=== PATIENT | female | born 1995 | race Caucasian/White ===

== ENCOUNTER 2018-11-20 19:50 | Emergency (ER) | payer OTHER ==
[2018-11-20 20:19] LABS: Bilirubin Negative (Negative); Blood, Urine Negative (Negative); Clarity CLEAR (Clear); Glucose, Urine (Dipstick) Negative (Negative); Leukocyte Negative (Negative); Nitrite Negative (Negative); Protein, Urine (Dipstick) Negative (Neg-Trace); Specific Gravity, Urine 1.007 (1.002-1.036); pH, Urine 6.5 (5.0-9.0)
[2018-11-20 20:31] LABS: #Eosinphils 0.1 thou/uL (0.0-0.7); #Lymphocytes 1.4 thou/uL (1.20-3.40); #Monocytes 0.7 thou/uL (0.11-0.59); #Neutrophils 7.1 thou/uL (1.40-6.50); %Basophils 0.4 % (0.0-1.0); %Eosinophils 1.1 % (0.0-10.0); %Lymphocytes 14.7 % (21.0-51.0); %Neutrophils 76.8 % (42.0-75.0); Mean Corpuscular HGB CONC 34.2 g/dL (32.0-36.0); Mean Corpuscular Hemoglobin 30.2 pg (27.0-31.0); Mean Corpuscular Volume 88.4 fL (78.0-98.0); Mean Platelet Volume 9.3 fL (7.4-10.4); Platelet Count 218 thou/uL (130-400); White Blood Cell (WBC) Count 9.2 thou/uL (4.8-10.8)
[2018-11-20 20:47] LABS: ALT (SGPT) 14 U/L (8-55); AST (SGOT) 15 U/L (5-34); Albumin 3.6 g/dL (3.5-5.0); Alkaline Phosphatase 81 U/L (40-150); Anion Gap 13 mmol/L (10-20); BUN (Urea Nitrogen) 6 mg/dL (7.0-18.7); Bilirubin, Total 0.2 mg/dL (0.2-1.2); Calc. Creatinine Clearance 0 mL/min (70-130); Calcium 9.7 mg/dL (7.8-10.44); Carbon Dioxide 22 mmol/L (22-29); Chloride 107 mmol/L (98-107); Estimated GFR-MDRD Greater than 90; Globulin 3.9 g/dL (2.4-3.5); Glucose 85 mg/dL (70-105); Potassium 3.9 mmol/L (3.5-5.1); Protein, Total 7.5 g/dL (6.0-8.3); Sodium 138 mmol/L (136-145)
[2018-11-20] MEDS ORDERED: Metoclopramide HCl 10 MG/2 ML VIAL ONE (21:21)
[2018-11-20] MEDS ORDERED: diphenhydrAMINE 50 MG/ML VIAL IVP SCH (21:30)
== END 2018-11-20 23:35 | disposition home or self-care (01) ==
LOC: ERS 19:50
DX: O21.9 Vomiting of pregnancy, unspecified (principal); O99.89 Other specified diseases and conditions complicating pregnancy, childbirth and the puerperium; R11.10 Vomiting, unspecified; Z3A.21 21 weeks gestation of pregnancy
CPT/HCPCS: 36415; 80053; 81003; 84702; 85025; 87086; 87804; 96365; 96375; J1200; J2765

== ENCOUNTER 2019-02-08 01:47 | Day surgery (SDC) | payer OTHER ==
[2019-02-08 03:38] VITALS: BMI 38.9
--- NOTE | 2019-02-08 03:58 | PDOC.LDHP ---
Labor and Delivery H&P Chief complaint: other (Epigastric pain) HPI: 23 yo @ 33.1 weeks comes in with complaints of epigastric pain earlier in the evening. Pt reports not having pain since she has been here in triage. Pt reports getting into verbal alteracation at the bar earlier in the evening. Stated after this argument she started feeling sharp pain in the upper abdomen. Reported not feeling baby move for a little bit as well. Denies any n/v/d/c. Denies any fever or chills. Reports +fm while here, Denies ctx, vaginal bleeding , discharge or irritation. Denies any urinary sx's. Denies burning when peeing. Pt denies any hx of gallbladder issues. Current gestational age (weeks): 33 (1 day) Grav: 1 Para: 0 Current complications: none Abnormal US findings: No Past Medical History: Anxiety, Seizures Current medications: pre-josé antonio vitamins Previous surgical history: none Allergies/Adverse Reactions: Allergies Allergy/AdvReac Type Severity Reaction Status Date / Time No Known Drug Allergies Allergy Verified 02/08/19 03:31 Social history: none - Physical Exam Vital signs reviewed and normal: yes General: NAD, resting Heart: RRR Lungs: nonlabored breathing Abdomen: NTTP Extremeties: no edema FHT: category 1, variability present Bantry contractions every: None noted - OB Labs Blood type: unknown RH: unknown Antibody Screen: unknown HIV: unknown RPR: unknown HEPSAg: unknown 1 hour GCT: unknown - Plan Plan: observation in L&D -: 23 yo @ 33.1 weeks comes in with Epigastric Pain -No tenderness noted on physical exam. No sign of bruising or redness or massess. -Pain resolved while here. Advised that pain likely round ligament vs GERD. Advised to try OTC GERD medication or milk or tylenol if pain returns. -NST reactive. Multiple accels noted Addendum - Attending - Attending Attestation Date/Time: 02/08/19 0748 I personally evaluated the patient and discussed the management with Dr. Dawn I agree with the History, Examination, Assessment and Plan documented above with any addition or exceptions noted below.
== END 2019-02-08 04:10 | disposition home or self-care (01) ==
LOC: L&D/OP 01:47
PROVIDERS: ATTEND Family Medicine
DX: O99.89 Other specified diseases and conditions complicating pregnancy, childbirth and the puerperium (principal); R10.13 Epigastric pain; O99.343 Other mental disorders complicating pregnancy, third trimester; F41.9 Anxiety disorder, unspecified; Z3A.33 33 weeks gestation of pregnancy; Z79.899 Other long term (current) drug therapy
CPT/HCPCS: 99282

== ENCOUNTER 2019-02-18 11:34 | Emergency (ER) | payer OTHER | END 2019-02-18 13:42 | disposition home or self-care (01) | LOC: ERS 11:34 | DX: J06.9 Acute upper respiratory infection, unspecified (principal); H10.9 Unspecified conjunctivitis | CPT/HCPCS: 99283 ==

== ENCOUNTER 2019-03-21 05:10 | Inpatient (IN) | payer OTHER ==
[2019-03-29] MEDS ORDERED: Methylergonovine 0.2 MG/ML VIAL IM PRN (21:44)
[2019-03-29] MEDS ORDERED: Diphenoxylate HCl/Atropine Tablet PO PRN (21:44)
[2019-03-29] MEDS ORDERED: Penicillin G 2.5 MILL.units 2.5 MILL.UNITS in Premix Bag 1 BAG IVPB SCH (21:44)
[2019-03-29] MEDS ORDERED: NS w/ Oxytocin 10 units 500 ML IV SCH ×2 (21:44)
[2019-03-29] MEDS ORDERED: HYDROcodone/Acetaminophen 5/325 mg Tablet PO PRN (21:44)
[2019-03-29] MEDS ORDERED: Lidocaine 1% (PF) 30 ML VIAL SC PRN (21:44)
[2019-03-29] MEDS ORDERED: Carboprost 250 MCG/ML AMP IM PRN (21:44)
[2019-03-29] MEDS ORDERED: Ondansetron PF 4 MG/2 ML Vial IVP PRN (21:44)
[2019-03-29] MEDS ORDERED: Ibuprofen 800 MG TAB PO PRN (21:44)
[2019-03-29] MEDS ORDERED: Misoprostol 200 MCG TAB PR PRN (21:44)
[2019-03-29] MEDS ORDERED: Penicillin G Potassium 5 MILL.UNITS in Sodium Chloride 0.9% 100 ML IVPB SCH (21:44)
[2019-03-29] MEDS ORDERED: NS / Oxytocin 40 units/1000ml 1,000 ML IV PRN (21:44)
[2019-03-29] MEDS ORDERED: Promethazine HCl 25 MG/ML VIAL IM PRN (21:44)
[2019-03-29 21:56] VITALS: BMI 40.5
[2019-03-29] MEDS: Lactated Ringer's 1,000 ML IV SCH (22:03)
[2019-03-29 22:12] LABS: Hemoglobin 13.5 g/dL (12.0-16.0); Mean Corpuscular HGB CONC 33.2 g/dL (32.0-36.0); Mean Corpuscular Hemoglobin 30.1 pg (27.0-31.0); Mean Corpuscular Volume 90.5 fL (78.0-98.0); Mean Platelet Volume 9.7 fL (7.4-10.4); Platelet Count 191 thou/uL (130-400); RBC Distribution Width 11.5 % (11.5-14.5); Red Blood Cell (RBC) Count 4.49 mill/uL (4.20-5.40); White Blood Cell (WBC) Count 13.6 thou/uL (4.8-10.8)
[2019-03-29 22:51] LABS: Syphilis Antibody Nonreactive (Nonreactive); Syphilis Antibody Index 0.04 S/CO (<1.00 Non-Reactive)
[2019-03-29 23:02] LABS: Amnisure Internal Control QC ACCEPTABLE (ACCEPTABLE); Amnisure Test No Membranes Rupture (No Rupture)
[2019-03-29] MEDS: Misoprostol 100 MCG TAB PO SCH (23:38)
[2019-03-29 23:47] LABS: Hep B Surf Ag Non-Reactive S/CO (NonReactive)
[2019-03-30] MEDS: Lactated Ringer's 1,000 ML IV SCH ×3 (02:11→14:49)
[2019-03-30] MEDS: Butorphanol Tartrate 1 MG/ML VIAL SLOW IVP PRN ×2 (03:54→11:35)
[2019-03-30] MEDS: Misoprostol 100 MCG TAB PO SCH ×2 (05:15→19:52)
[2019-03-30] MEDS ORDERED: ePHEDrine/0.9% NaCl/PF SYRINGE 50 mg/10 ml ONE (11:11)
[2019-03-30] MEDS ORDERED: Fentanyl 4 mcg/Bup 0.1% Cadd 100 ML ONE ×2 (13:37→13:53)
[2019-03-30] MEDS ORDERED: Fentanyl 4 mcg/Bupivacaine 0.1% Cassette 100 ML EPIDURAL SCH (14:15)
[2019-03-30] MEDS ORDERED: Acetaminophen 325 MG TAB PO PRN (14:15)
[2019-03-30] MEDS ORDERED: ePHEDrine/0.9% NaCl/PF SYRINGE 50 mg/10 ml SLOW IVP PRN (14:15)
[2019-03-30] MEDS ORDERED: Ondansetron PF 4 MG/2 ML Vial IVP PRN ×3 (14:15→18:01)
[2019-03-30] MEDS ORDERED: Lactated Ringer's 500 ML IV PRN (14:15)
[2019-03-30] MEDS ORDERED: Promethazine HCl 25 MG/ML VIAL IM PRN ×2 (14:15→15:47)
[2019-03-30] MEDS ORDERED: Communication Order-Pharmacy FS SCH ×2 (14:15→16:00)
[2019-03-30] MEDS ORDERED: diphenhydrAMINE 50 MG/ML VIAL IVP PRN ×2 (14:15→15:47)
[2019-03-30] MEDS ORDERED: Eucerin (Mineral Oil/Petrolatum,White) 30 gm Jar TOP PRN ×2 (14:15→15:47)
[2019-03-30] MEDS ORDERED: Naloxone HCl 0.4 mg/ml Vial IVP PRN ×4 (14:15→15:47)
[2019-03-30] MEDS ORDERED: Terbutaline Sulfate 1 MG/ML VIAL ONE (14:26)
[2019-03-30] MEDS ORDERED: EPINEPHrine 1 MG/ML AMP ONE (14:53)
[2019-03-30] MEDS ORDERED: Lidocaine 2% 10 ML INJ ONE (14:53)
[2019-03-30] MEDS ORDERED: Bicitra 30 ML UDCUP PO SCH (15:00)
[2019-03-30] MEDS ORDERED: CEFAZOLIN 2 GM in Premix Bag 1 BAG IVPB SCH (15:00)
[2019-03-30] MEDS ORDERED: Fentanyl 100 MCG/2 ML VIAL ONE (15:14)
[2019-03-30] MEDS ORDERED: MORPHINE 5 MG/10 ML PF VIAL ONE (15:14)
[2019-03-30] MEDS ORDERED: Ketorolac Tromethamine 30 MG/ML VIAL ONE ×2 (15:15→17:03)
[2019-03-30] MEDS ORDERED: Oxytocin 10 UNITS/ML VIAL ONE (15:15)
[2019-03-30] MEDS ORDERED: Ondansetron PF 4 MG/2 ML Vial ONE ×2 (15:15→17:03)
[2019-03-30] MEDS ORDERED: Azithromycin 500 MG in Sodium Chloride 0.9% 250 ML 250 ML IVPB SCH (15:30)
[2019-03-30] MEDS ORDERED: Ondansetron HCl/PF 4 MG/2 ML Vial IVP PRN (15:47)
[2019-03-30] MEDS ORDERED: Acetaminophen 1,000 MG in Premix Bag 1 BAG IVPB PRN (15:47)
[2019-03-30] MEDS ORDERED: Naloxone HCl 0.4 mg/ml Vial IV PRN (15:47)
[2019-03-30] MEDS ORDERED: Promethazine HCl 25 MG SUPP PR PRN (15:47)
[2019-03-30] MEDS ORDERED: Ketorolac Tromethamine 30 MG/ML VIAL IVP SCH ×2 (16:00→18:00)
[2019-03-30] MEDS ORDERED: diphenhydrAMINE 25 MG CAP PO PRN (18:01)
[2019-03-30] MEDS ORDERED: NS / Oxytocin 40 units/1000ml 1,000 ML IV SCH (18:01)
[2019-03-30] MEDS ORDERED: Lanolin Ointment 7 GM TUBE TOP PRN (18:01)
[2019-03-30] MEDS ORDERED: Adacel (T-DAP) 0.5 ML SYRINGE IM ONE (18:01)
[2019-03-30] MEDS ORDERED: Bisacodyl 10 MG SUPP PR PRN (18:01)
[2019-03-30] MEDS ORDERED: Misoprostol 200 MCG TAB PR PRN (18:01)
[2019-03-30] MEDS: Docusate Calcium (SURFAK) 240 MG CAP PO SCH (21:35)
[2019-03-30] MEDS: Ketorolac Tromethamine 30 MG/ML VIAL IVP SCH (21:37)
[2019-03-31] MEDS: Lactated Ringer's 1,000 ML IV SCH (00:34)
[2019-03-31] MEDS ORDERED: Meperidine HCl/PF 25 MG/ML VIAL IM PRN (04:00)
[2019-03-31] MEDS: Ketorolac Tromethamine 30 MG/ML VIAL IVP SCH ×3 (04:16→17:05)
--- NOTE | 2019-03-31 05:02 | DN ---
DATE OF PROCEDURE: 03/30/2019 [employer] OPERATOR: Dale Dawn MD, PGY-2 PROCEDURE PERFORMED: Primary low transverse section. PREOPERATIVE DIAGNOSES: 1. Term intrauterine . 2. Non-reassuring heart tones. POSTOPERATIVE DIAGNOSES: 1. Term intrauterine . 2. Non-reassuring heart tones. ANESTHESIA: Epidural. INDICATIONS: This patient is a 23-year-old G1, P0 female at 42 weeks' gestation who went for primary low-transverse due to non-reassuring heart tones, came in for induction last night for postdates, she is 40 and 2 weeks. PROCEDURE IN DETAIL: After risks, benefits, and alternatives were explained to the patient, she gave informed consent. Preoperative antibiotics included cefazolin 2 g IV and azithromycin 500 mg. the patient was taken to the operating room and spinal anesthesia was initiated. She was placed in supine position with the left tilt, and prepped and draped in the routine sterile fashion. A Pfannenstiel incision was made with a scalpel and carried down to the level of the fascia, which was sharply nicked. The fascial cut was extended bilaterally with Stark scissors. The inferior and superior edges of the cut edges were elevated with Yosef clamps and the underlying rectus muscles were sharply and bluntly dissected free. The recti were divided digitally and retracted manually. The peritoneum was entered bluntly and retracted manually. Bladder blade was placed. A low transverse score was made with the scalpel and the uterus was entered in the midline with a scalpel. Clear fluid was seen. The hysterotomy was extended manually. The infant was noted to be vertex and easily delivered by fundal pressure. Mouth and nares were bulb suctioned. Cord clamped and cut and grossly normal female was handed to the waiting nurse. Cord gas was obtained. Cord blood was obtained. The placenta was manually extracted, found to be intact with three-vessel cord and discarded. Uterus was externalized and the endometrium was curetted with a dry lap. The uterus was noted to be remained boggy for a short time, so she was injected with Methergine. Bladder blade was replaced. The uterus was closed with a running locking #0 Vicryl suture followed by one horizontal mattress 0 Vicryl imbricating suture. Following this, hemostasis was noted. Abdomen was irrigated with saline and suctioned free of clots. Uterus was internalized and the hysterotomy was again noted to be hemostatic. The peritoneum was closed with a 2-0 chromic in a running nonlocking fashion. The fascia was closed with a running nonlocking 0 PDS suture. Subcu tissue was irrigated and bleeders were taken care of with Bovie cautery. The skin was then approximated. The subcu layer was then closed with 3-0 chromic with three interrupted sutures. The skin was approximated with abilio and pressure dressing was placed. All counts were correct. The patient tolerated the procedure well and taken to recovery room in stable condition. QBL: Pending at the time of this dictation. COMPLICATIONS: None. SPECIMENS: Cord blood and cord gas sent to lab for blood type. FINDINGS: Grossly normal female with Apgars of 9 and 9, born at 3:25 p.m. Grossly normal placenta, 3-vessel cord discarded. DRAINS: Hagan to gravity draining clear urine. Job ID: [id number]
[2019-03-31 05:51] LABS: Hemoglobin 10.6 g/dL (12.0-16.0); Mean Corpuscular HGB CONC 32.6 g/dL (32.0-36.0); Mean Corpuscular Hemoglobin 30.2 pg (27.0-31.0); Mean Corpuscular Volume 92.6 fL (78.0-98.0); Mean Platelet Volume 9.9 fL (7.4-10.4); Platelet Count 150 thou/uL (130-400); RBC Distribution Width 11.5 % (11.5-14.5); Red Blood Cell (RBC) Count 3.51 mill/uL (4.20-5.40); White Blood Cell (WBC) Count 14.7 thou/uL (4.8-10.8)
[2019-03-31] MEDS: Ferrous Sulfate 325 MG TAB PO SCH ×2 (07:26→17:07)
[2019-03-31] MEDS ORDERED: Sodium Chloride 0.9% 0 ML ONE (09:10)
[2019-03-31] MEDS: Docusate Calcium (SURFAK) 240 MG CAP PO SCH ×2 (09:37→21:40)
[2019-03-31] MEDS: Prenatal Vitamin 1 TAB PO SCH (09:37)
[2019-03-31] MEDS: HYDROcodone/Acetaminophen 5/325 mg Tablet PO PRN ×3 (11:09→23:04)
[2019-03-31] MEDS ORDERED: Sodium Chloride 0.9% 10 ML ONE (13:49)
[2019-03-31] MEDS: Ibuprofen 800 MG TAB PO SCH (21:40)
[2019-04-01] MEDS: Ibuprofen 800 MG TAB PO SCH ×4 (05:55→21:41)
[2019-04-01] MEDS ORDERED: Ibuprofen 800 MG TAB PO SCH (06:00)
[2019-04-01] MEDS: Ferrous Sulfate 325 MG TAB PO SCH ×2 (08:23→16:30)
[2019-04-01] MEDS: Simethicone Chewable 80 MG TAB PO PRN ×2 (08:36→21:41)
[2019-04-01] MEDS: Docusate Calcium (SURFAK) 240 MG CAP PO SCH ×2 (08:36→21:41)
[2019-04-01] MEDS: Prenatal Vitamin 1 TAB PO SCH (08:36)
[2019-04-01] MEDS: HYDROcodone/Acetaminophen 5/325 mg Tablet PO PRN ×2 (08:36→23:57)
[2019-04-02] MEDS: Ibuprofen 800 MG TAB PO SCH (06:01)
[2019-04-02] MEDS: Docusate Calcium (SURFAK) 240 MG CAP PO SCH (08:17)
[2019-04-02] MEDS: HYDROcodone/Acetaminophen 5/325 mg Tablet PO PRN ×2 (08:17→12:36)
[2019-04-02] MEDS: Prenatal Vitamin 1 TAB PO SCH (08:17)
[2019-04-02 08:33] VITALS: BP 113/72; TEMP 98.6
[2019-04-02] MEDS: Ferrous Sulfate 325 MG TAB PO SCH (12:41)
[2019-04-02] MEDS: Simethicone Chewable 80 MG TAB PO PRN (12:45)
== END 2019-04-02 13:40 | disposition home or self-care (01) | DRG 788 ==
LOC: L&D 03-29 21:43 → 3SW 03-30 18:25
PROVIDERS: ADMIT Family Medicine; ATTEND Family Medicine
PROC: 10D00Z1 Extraction of Products of Conception, Low, Open Approach (ICD-10-PCS; principal; 2019-03-30)
PROC: 3E033VJ Introduction of Other Hormone into Peripheral Vein, Percutaneous Approach (ICD-10-PCS; 2019-03-30)
DX: O48.0 Post-term pregnancy (principal); O76 Abnormality in fetal heart rate and rhythm complicating labor and delivery; Z3A.40 40 weeks gestation of pregnancy; Z37.0 Single live birth
CPT/HCPCS: 36415; 51702; 82805; 84112; 85027; 86780; 86850; 86900; 86901; 87340; J0171; J0456; J0595; J0690; J1885; J2001; J2210; J2270; J2310; J2405; J2550; J2590; J3010; J3105; J7050

== ENCOUNTER 2023-10-14 18:16 | Emergency (ER) | payer OTHER ==
[2023-10-14 20:47] LABS: SARS-CoV-2 NAA Rapid Test Not Detected (NotDetected)
[2023-10-14] MEDS ORDERED: Dexamethasone 10 MG/ML VIAL ONE (20:57)
== END 2023-10-14 22:25 | disposition home or self-care (01) ==
LOC: ERS 18:16
DX: J01.90 Acute sinusitis, unspecified (principal); B34.9 Viral infection, unspecified; Z20.822 Contact with and (suspected) exposure to COVID-19
CPT/HCPCS: 71045; 87081; 87430; J1100

== ENCOUNTER 2023-10-16 09:58 | Emergency (ER) | payer OTHER ==
[2023-10-16] MEDS ORDERED: Ketorolac Tromethamine 30 MG/ML VIAL ONE (11:46)
== END 2023-10-16 12:09 | disposition home or self-care (01) ==
LOC: ERS 09:58
DX: R04.0 Epistaxis (principal); J01.90 Acute sinusitis, unspecified
CPT/HCPCS: 96372; 99283; J1885